=== PATIENT | female | born 1990 | race Caucasian/White ===

== ENCOUNTER 2023-03-05 20:06 | Emergency (ER) | payer MEDICAID, SELFPAY ==
[2023-03-05 20:30] VITALS: BP 140/93; PULSE 106; RESP 18; TEMP 37; O2SAT 97; BMI 56.2
[2023-03-05] MEDS: AMOXICILLIN 500 MG CAPSULE PO (20:59)
[2023-03-05] MEDS: BENZOCAINE 30 ML, lidocaine HCL 15 ML MM (20:59)
--- NOTE | 2023-03-05 21:04 | ED_ITS ---
HPI - Dental/Oral General Stated complaint: TOOTH INFECTION Time Seen by Provider: 03/05/23 20:35 Source: patient Mode of arrival: walk-in History of Present Illness HPI Narrative: patient is a 32-year-old female who presents to the emergency department with concern for dental infection. Patient states one year ago she broke tooth #30 in her lower jaw. She states for the last several weeks she has had pain increasing to this area and she is concerned she may have an infection. Her employer requested she come to the Emergency Room to be evaluated and get antibiotics. She's had no fevers, no drainage from the area. She is regular smoker. She is not concerned for . No medications prior to arrival. She has had no difficulty breathing or swallowing. Related Data Home Medications Medication Instructions Recorded Confirmed bupropion HCl (smoking deter) 150 150 mg PO BID 03/05/23 03/05/23 mg tablet,12 hr sustained-release(smoking deterrent) Previous Rx's Medication Instructions Recorded amoxicillin 500 mg capsule 500 mg PO TID 10 days #30 caps 03/05/23 ketorolac 10 mg tablet 10 mg PO TID PRN pain #10 tabs 03/05/23 Allergies Allergy/AdvReac Type Severity Reaction Status Date / Time codeine Allergy Severe Verified 03/05/23 20:33 venlafaxine [From Effexor] Allergy Severe Verified 03/05/23 20:33 Review of Systems ROS Constitutional Denies: fever or chills Ears, nose, mouth, and throat Denies: throat pain or neck pain Respiratory Denies: shortness of breath or cough Gastrointestinal Denies: nausea or vomiting Musculoskeletal Denies: back pain or neck pain Integumentary/Breast Denies: rash Neurological Denies: headache Exam Narrative Exam Narrative: Gen.: Awake, alert, in no distress Head: Normocephalic, atraumatic ENT: Moist mucous membranes, tooth #30 with small avulsion on the posterior, medial aspect of the tooth. Dental caries noted diffusely with no visible dental abscess. No trismus or drooling. Clear speech. no redness or swelling under the tongue Respiratory: No respiratory distress Extremities: Moves extremities equally Psych: Normal mood and affect Neuro: No focal neuro deficit Skin: Warm, dry, intact Constitutional Vital Signs, click to edit/add: Last Vital Signs Temp 98.6 F 03/05/23 20:30 Pulse 106 H 03/05/23 20:30 Resp 18 03/05/23 20:30 BP 140/93 H 03/05/23 20:30 Pulse Ox 97 03/05/23 20:30 O2 Del Method Room Air 03/05/23 20:30 Course Vital Signs Vital signs: Vital Signs Temperature 98.6 F 03/05/23 20:30 Pulse Rate 106 H 03/05/23 20:30 Respiratory Rate 18 03/05/23 20:30 Blood Pressure 140/93 H 03/05/23 20:30 Pulse Oximetry 97 03/05/23 20:30 Oxygen Delivery Method Room Air 03/05/23 20:30 Temperature 98.6 F 03/05/23 20:30 Pulse Rate 106 H 03/05/23 20:30 Respiratory Rate 18 03/05/23 20:30 Blood Pressure 140/93 H 03/05/23 20:30 Pulse Oximetry 97 03/05/23 20:30 Oxygen Delivery Method Room Air 03/05/23 20:30 MDM - Dental/Oral MDM Narrative Medical decision making narrative: exam is consistent with dental caries, partial tooth avulsion. No visible dental abscess at this time. Patient treated with amoxicillin, topical analgesia and N SAIDs. Follow-up with dental as scheduled. Return to the Emergency Room if symptoms change or worsen Medical Records Attestation: I reviewed the patient's medical records. Discharge Plan Discharge Clinical Impression: Pain due to dental caries Patient Disposition: Home, Self-Care Time of Disposition Decision: 20:47 Condition: Good Prescriptions / Home Meds: New amoxicillin 500 mg capsule 500 mg PO TID 10 Days Qty: 30 0RF ketorolac 10 mg tablet 10 mg PO TID PRN (Reason: pain) Qty: 10 0RF No Action bupropion HCl (smoking deter) 150 mg tablet extended release 12 hr 150 mg PO BID Instructions: Toothache (ED) Additional Instructions: Follow up dental Stand Alone Forms: Portal Instructions Referrals: Graciela SALAZAR [Primary Care Provider] - 1 week Discharge Date/Time: 03/05/23 21:03
== END 2023-03-05 21:03 | disposition home or self-care (01) ==
PROVIDERS: Emergency Provider Emergency Medicine; PCP Family Medicine
DX: K02.9 Dental caries, unspecified (principal); F17.210 Nicotine dependence, cigarettes, uncomplicated
CPT/HCPCS: 99283